=== PATIENT | male | born 1935 | race Caucasian/White ===

== ENCOUNTER 2023-04-20 14:39 | Inpatient (IN) | payer MEDICARE, OTHER, SELFPAY ==
[2023-04-13 11:04] LABS: Hematocrit 40.2 % (40-54); Hemoglobin 12.2 g/dL (13.0-16.5); Mean Corp Hgb Conc 30.3 g/dL (32-36); Mean Corpuscular Hgb 29.8 pg (27.0-32.0); Mean Platelet Vol. 9.5 fl (6.2-12.0); Platelet Count 309 K/mm3 (150-450); RBC Distribution Width CV 15.3 % (11.6-14.6); RBC Distribution Width SD 55.2 fl (35.1-43.9); White Blood Count 6.8 K/mm3 (4.4-11.0)
[2023-04-13 11:57] LABS: Anion Gap 4 (5-15); BUN 21 mg/dL (7-18); BUN/Creat Ratio 16.8 RATIO (10-20); Calcium,Total 8.7 mg/dL (8.5-10.1); Chloride 107 mmol/L (98-107); Creatinine, Serum 1.25 mg/dL (0.70-1.30); EST Glomerular Filtration Rate 58 mL/min (>60); Est Glom Filt Rate - Afr Amer 70 mL/min (>60); Glucose 115 mg/dL (74-106); Potassium 4.2 mmol/L (3.5-5.1); Sodium Level 142 mmol/L (136-145)
[2023-04-13 12:17] LABS: Hemoglobin A1c 6.1 % (3.8-5.6)
[2023-04-20] VITALS (20 sets, daily range): BP systolic 90–146; BP diastolic 53–102; PULSE 60–88; RESP 16–20; TEMP 36.2–37.1; O2SAT 79–98; BMI 30.4
--- NOTE | 2023-04-20 | PROST_PTH ---
PATIENT: MIGUEL SORIA LOC: MS3 U#:[id number] AGE/SX: 87/M ROOM: GA321 RE04/21/[address]: Dr. Virgil Chow MD : [id number] BED: 1 DIS: 04/25/2023 SPEC #: [id number] RECD: 04/20/23 18:25 STATUS: DAVID MUIR #: [id number] ERICA: 04/20/23 00:[address]: Virgil Chow DEPT: SURGICAL PATHOLOGY RECD BY: Eliud Ellis ENTERED: 04/21/23 08:57 SP TYPE: PROSTATE OTHR DR: Dr. Kirill Juarez MD Tissues: Prostate, NOS Procedures: Surgery Specimen Level V HEADER OPERATION: Laparoscopic robotic simple prostatectomy PRE-OP DIAGNOSIS: Urine retention, Benign prostatic hyperplasia with lower urinary tract symptoms TISSUE SUBMITTED: Prostate tissue MICROSCOPIC DIAGNOSIS Prostate, simple prostatectomy: Benign nodular hyperplasia, glandular and stromal types. Mild chronic inflammation. AM:andre 04/22/2023 MICROSCOPIC DESCRIPTION Slides are reviewed. GROSS DESCRIPTION Received in fixative is one container labeled with the patient's name and designated prostate tissue. The specimen consists of a simple prostatectomy specimen consisting of two large pieces, two intermediate sized pieces and one smaller piece. The specimen weighs in aggregate 257 gm and measures in aggregate 12.0 x 13.0 x 5.0 cm. Sections reveal multinodular cut surfaces with focal cystic area. No well-defined mass lesion is identified. Actuarial Clerk sections are submitted in ten cassettes as follows: 1 & 2 - smaller pieces of tissue, 3-6 - one large piece of tissue, 7-10 - second largest piece of tissue. / SJ:andre 04/21/2023 TC:3 CPT: 28967
[2023-04-20] MEDS: Lactated Ringers 1,000 ML 15 ML IV ×2 (10:29→16:18)
[2023-04-20 10:51] LABS: Bedside Glucose 106 mg/dL (74-106)
[2023-04-20] MEDS: Cefazolin 2 GM in 0.9% Normal Saline (100mL Bag) 100 ML IV (11:59)
[2023-04-20] MEDS: Bupivacaine Mpf 0.5% 30 ML VIAL (14:20)
--- NOTE | 2023-04-20 14:40 | PCM.HP.STD ---
HPI - General General Date of Service: 04/20/23 Chief Complaint: Retention of urine with a very large prostate HPI Narrative MIGUEL SORIA, is a 87 M who presents with retention of urine the prostate weighs 250 g cerumen to proceed with a simple robotic prostatectomy [facility] Medical History (Updated 04/07/23 @ 14:24 by Conchis Jeffrey) Abrasion Arthritis Cardiology follow-up encounter CKD (chronic kidney disease) Complete heart block Coronary artery disease Dilated cardiomyopathy Dyslipidemia Elevated PSA Enlarged prostate High cholesterol Hyperlipidemia Hypertension Ischemic heart disease Mitral valve regurgitation Non-smoker Osteoarthritis Paroxysmal atrial fibrillation Premature beats Prostate disease Shortness of breath on exertion Somnolence Systolic heart failure Urinary retention Wears glasses Home Medications aspirin 81 mg capsule 81 mg PO BID 04/07/23 [History Last Taken 04/14/23] carvedilol 12.5 mg tablet 12.5 mg PO BID 04/07/23 [History Last Taken 04/20/23 06:30] clopidogrel 75 mg tablet 75 mg PO DAILY 04/07/23 [History Last Taken 04/14/23] empagliflozin 10 mg tablet (Jardiance) 10 mg PO DAILY 04/07/23 [History Last Taken Unknown] furosemide 40 mg tablet 20 mg PO DAILY 04/07/23 [History Last Taken Unknown] pravastatin 40 mg tablet 40 mg PO QHS 04/07/23 [History Last Taken Unknown] sacubitril 97 mg-valsartan 103 mg tablet (Entresto) 1 tab PO BID 04/07/23 [History Last Taken Unknown] sitagliptin phosphate 50 mg-metformin 1,000 mg tablet (Janumet) 1 tab PO BID 04/07/23 [History Last Taken Unknown] ciprofloxacin HCl 500 mg tablet (Cipro) 500 mg PO BID #20 tabs 04/20/23 [Rx Last Taken Unknown] ibuprofen 600 mg tablet 600 mg PO Q6H PRN fever or pain #20 tabs 04/20/23 [Rx Last Taken Unknown] Allergy/AdvReac Type Severity Reaction Status Date / Time No Known Allergies Allergy Verified 04/07/23 13:26 Surgical History (Updated 04/07/23 @ 14:24 by Conchis Jeffrey) History of angioplasty (~04/2017) History of cardiac catheterization 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) History of cystoscopy (03/01/23) History of implantable cardiac defibrillator (ICD) (08/17/17) History of knee surgery History of local excision of skin lesion History of prostate biopsy (03/01/23) Social History Smoking Status: Never smoker Vital Signs Vital Signs Vital Signs: 04/20/23 10:01 04/20/23 10:01 Temperature 98.7 F Temperature Source Temporal Pulse Rate 67 Respiratory Rate 16 Respiratory Pattern Normal Blood Pressure 129/64 H Blood Pressure Mean 85 Blood Pressure Source Monitor Blood Pressure Position Semi-Fowlers Blood Pressure Location Left Arm Pulse Ox 98 Oxygen Delivery Method Room Air Weight Weight: 99 kg Body Mass Index (BMI) 30.4 Results Lab / Micro Data 04/13/23 10:33 04/13/23 10:33 Labs: Laboratory Results - last 24 hr 04/20/23 10:12: POC Glucose 106
--- NOTE | 2023-04-20 14:41 | OP.PCM_ITS ---
Report of Operation Date of Procedure: 04/20/23 Pre-Operative Diagnosis: BPH with obstruction and retention of urine Post-Operative Diagnosis: Same Surgery/Procedure Performed:: Laparoscopic robotic assisted simple prostatectomy Description of Surgical Findings:: Patient presents for a simple robotic prostatectomy. He understands that organ to do enucleation of the obstructing adenoma and then after his surgery he will need a catheter to allow this to heal. He understands is no guarantees that after the surgery he will be able to urinate spontaneously and may need to learn how to do self intermittent catheterization. We also talked about the risk of surgery which involves risk of bleeding and infection scar tissue formation bladder neck contracture. Patient was taken back to the operating room at this induction of anesthesia he underwent and intubation and was placed supine on the table. The abdomen was shaved prepped and draped in usual sterile fashion. A Mora catheter was placed into the penis. I then infiltrated the skin above the umbilicus with lidocaine and made a small 5 mm incision in the skin. I then advanced a Veress needle into the peritoneal cavity and inflated the peritoneal cavity with CO2 gas. Once the pressure was at 15 mm and a nice distention of the abdomen then the camera trocar was put into the abdomen. We then looked in with the 0 degree lens and we placed a right arm trocar and left arm trocar and then an air seal suction port high up in the abdomen to allow the respiratory equipment assistant to use this for suction. The robot was then docked and then we proceeded with the dissection. The colon was mobilized from the flexure of the colon on the patient's left side once this was freed up then the bladder was distended with 300 cc of sterile normal saline. I then made an incision in the bladder in the midline once we got inside the bladder that drained out all the saline we then used 2 Armando needles to retract the bladder laterally. Once the bladder was retracted in a clamshell fashion laterally then we got inside the bladder inspected the bladder deflated the balloon left the catheter in place. We then started with scoring the mucosa circumferentially all the way around very large protruding adenomatous prostate. I then dissected between the adenoma and the bladder inferiorly working my way in the avascular enucleation plane between the adenoma and the prostate capsule, pseudocapsule all the way inferiorly I then started working my way laterally up on the right side of the prostate until I got to the anterior part freeing up the adenomatous tissue from the prostate and the anteri or tissue and cutting through the bladder muscle and mucosa. We then worked our way laterally on the left side of the adenomatous tissue freeing up the adenoma from the prostate and the bladder muscle and mucosa I then came on top of the adenoma and was able to retract the adenoma out and then split the adenoma in half and identified the catheter and then identified the urethral strip the urethral strip was then carefully transected and then the right adenomatous tissue was removed and then the left adenomatous tissue was removed all intact and all this was placed in Endo Catch bag. Then we cauterized the prostate fossa extensively to control hemostasis Va was placed in the prostatic fossa. I then used a 3 oh STRATAFIX stitch to bring down the mucosa and advance it down towards the urethra circumferentially to advance the mucosa down to the urethral stump. We then placed a Mora catheter, 20 Spanish into the bladder with no continuous irrigation. Irrigate out the bladder irrigate all the clots out we then closed the bladder with 2 layers using 2 oh V-Loc stitch and then a 4-0 Vicryl stitch. Both the Armando needles were removed that were retracting the bladder. We then undocked the robot we extracted the prostate adenoma through the umbilicus port we closed the air seal port with 1012 stitch and then we closed all the other ports with subcuticular stitches once the prostate was extracted to the camera port and we reapproximated the fascia and the camera port with a 0 Vicryl [id number] fashion stitch. Minimal blood loss during the case catheter was irrigated and draining well patient anesthetic was reversed and he was taken back to the PACU in good condition. Surgeon: Virgil Chow Type of Anesthesia: General Drains: 20 FR CHINTAN Estimated Blood Loss (mL): 500 Admit VTE Documentation VTE Present on Admission: No VTE Mechan Device Prophylaxis: SCD's VTE Pharm Prophylaxis ordered?: No
--- NOTE | 2023-04-20 14:41 | DCINST_ITS ---
Discharge Instructions Diet Discharge Diet: No restrictions Activity Discharge Activity: Return to Normal Activity Dressing / Incision Cleanse incision/area with: Soap & Water Catheter: Mora to leg bag and Mora to large bag Drain: [place] Follow Up Care Please Follow Up With: Virgil Chow MD When: Call for an appointment in 2 weeks remove catheter Test Results: Test results from this visit will be discussed in further detail at your follow- up appointment, if applicable. Discharge Plan Admission Primary Reason for Your Visit: Simple prostatectomy Attending Provider: Virgil Chow Primary Care Provider: BRYN REED Consulting Providers: Kirill Juarez Discharge Orders/Prescriptions Prescriptions: New ciprofloxacin HCl [Cipro] 500 mg tablet 500 mg PO BID Qty: 20 0RF ibuprofen 600 mg tablet 600 mg PO Q6H PRN (Reason: fever or pain) Qty: 20 0RF Continued Jardiance 10 mg tablet 10 mg PO DAILY Patient Comments: TAKE 1 TABLET BY MOUTH IN THE MORNING carvedilol 12.5 mg tablet 12.5 mg PO BID Patient Comments: TAKE 1 TABLET BY MOUTH TWICE DAILY furosemide 40 mg tablet 20 mg PO DAILY Janumet 50-1,000 mg tablet 1 tab PO BID pravastatin 40 mg tablet 40 mg PO QHS Entresto 97-103 mg tablet 1 tab PO BID Held aspirin 81 mg capsule 81 mg PO BID Hold Instructions: Resume on 05/04/23. clopidogrel 75 mg tablet 75 mg PO DAILY Hold Instructions: Resume on 05/04/23. Discontinued tamsulosin 0.4 mg capsule 0.4 mg PO QHS Disposition Disposition (needs filled in before D/C Order can be placed): Home, Self Care
[2023-04-20 15:40] LABS: Bedside Glucose 152 mg/dL (74-106)
[2023-04-20] MEDS: 0.9% Normal Saline (1000mL) 1,000 ML 150 ML IV (18:53)
[2023-04-20] MEDS: Ciprofloxacin 400 MG/200 ML BAG 200 MG IV (20:42)
[2023-04-20] MEDS: Pravastatin 40 MG Tablet PO (20:51)
[2023-04-20] MEDS: Docusate Sodium 100 MG Capsule 200 MG PO (20:51)
[2023-04-20] MEDS: SACUBITRIL/VALSARTAN 97-103 MG TABLET 1 EACH PO (20:51)
[2023-04-20] MEDS: Carvedilol 12.5 MG Tablet PO (20:51)
[2023-04-21] VITALS (8 sets, daily range): BP systolic 99–116; BP diastolic 55–83; PULSE 62–72; RESP 16–18; TEMP 36.3–36.6; O2SAT 86–96
[2023-04-21] MEDS: 0.9% Normal Saline (1000mL) 1,000 ML 150 ML IV ×3 (02:34→17:35)
--- NOTE | 2023-04-21 07:37 | PCM.PN.GU ---
Subjective Subjective 87-year-old male status post simple prostatectomy for a very large prostate 250 g prostate for obstruction and BPH and retention of urine. Urine is still slightly bloody but draining okay. He is fairly confused only oriented to self needs full help to get out of bed on the right for physical therapy for evaluation I think you probably benefit to transfer to a short-term rehab facility prior to going home will have PT evaluate him for that if he qualifies and hopefully we can get him discharged to short-term facility by tomorrow.. Objective Data Objective Data Vital Signs: Vital Signs Temp Pulse Resp BP Pulse Ox O2 Del Method O2 Flow Rate 97.5 F L 72 18 114/60 96 Nasal Cannula 2 04/21/23 02:36 04/21/23 02:36 04/21/23 02:36 04/21/23 02:36 04/21/23 02:36 04/21/23 02:36 04/21/23 02:36 Oxygen Flow Rate (L/min) 2 Oxygen Delivery Method Nasal Cannula Weight: 99 kg Body Mass Index (BMI) 30.4 Intake & Output: Intake and Output for Last 24 Hours 04/19/23 04/20/23 04/21/23 23:59 23:59 23:59 Intake Total 2402.5 / 2402.5 1000 / 1000 Output Total 750 / 750 450 / 450 Balance 1652.5 / 1652.5 550 / 550 Lab / Micro Data 04/13/23 10:33 04/13/23 10:33 Labs: Laboratory Results - last 24 hr 04/20/23 10:12: POC Glucose 106 04/20/23 15:17: POC Glucose 152 H
[2023-04-21 07:44] LABS: Hematocrit 37.7 % (40-54); Hemoglobin 11.7 g/dL (13.0-16.5); Mean Corpuscular Hgb 29.9 pg (27.0-32.0); Mean Corpuscular Volume 96.4 fL (80-94); Mean Platelet Vol. 9.7 fl (6.2-12.0); Platelet Count 269 K/mm3 (150-450); RBC Distribution Width CV 14.9 % (11.6-14.6); RBC Distribution Width SD 52.9 fl (35.1-43.9); Red Blood Count 3.91 M/mm3 (4.6-6.2); White Blood Count 8.7 K/mm3 (4.4-11.0)
[2023-04-21] MEDS: Furosemide 20 MG Tablet PO (08:09)
[2023-04-21] MEDS: Ciprofloxacin 400 MG/200 ML BAG 200 MG IV (08:09)
[2023-04-21] MEDS: Empagliflozin 10 MG Tablet PO (08:10)
[2023-04-21] MEDS: metFORMIN HCl 500 MG Tablet 1000 MG PO (08:10)
[2023-04-21] MEDS: LINAGLIPTIN 5 MG TABLET PO (08:10)
[2023-04-21] MEDS: Docusate Sodium 100 MG Capsule 200 MG PO ×2 (08:10→22:34)
[2023-04-21] MEDS: Carvedilol 12.5 MG Tablet PO (08:10)
[2023-04-21] MEDS: SACUBITRIL/VALSARTAN 97-103 MG TABLET 1 EACH PO (08:10)
[2023-04-21 08:13] LABS: Anion Gap 10 (5-15); BUN 27 mg/dL (7-18); Chloride 108 mmol/L (98-107); Creatinine, Serum 1.35 mg/dL (0.70-1.30); EST Glomerular Filtration Rate 53 mL/min (>60); Est Glom Filt Rate - Afr Amer 64 mL/min (>60); Estimated Creatinine Clearance 41.06 ml/min; Glucose 152 mg/dL (74-106); Potassium 4.5 mmol/L (3.5-5.1); Sodium Level 140 mmol/L (136-145)
[2023-04-21 08:36] LABS: Bedside Glucose 147 mg/dL (74-106)
--- NOTE | 2023-04-21 15:51 | CASEMGMT ---
Met with patients son and dil to complete JIMENEZ form. JIMENEZ form explained to both who voiced understanding and signed form. Original form placed in pt?s chart and copy provided to?family. Dorothy Stockton, Discharge Planning Asst
--- NOTE | 2023-04-21 16:10 | CASEMGMT ---
Social Work SW met with pt to discuss advance directives.? Pt's son confirms pt has completed a living will and health care POA naming son Nghia Lamb. Pt notified that documents are not on file at [facility] and SW requested they be brought in for scanning into the EMR.? ELLIOT Courtney
--- NOTE | 2023-04-21 16:12 | CASEMGMT ---
Social Work SW met with pt, pt's son and daughter in law Fuad Lamb. Pt is currently confused and not able to answer all questions reliably. Pts son Robin answering questions. Per son Robin, pt is normally alert and oriented x3 but is starting to get mixed up in the evenings. Pt has not been diagnoses with dementia. Family states pt is often confused after surgery and they feel he will clear up by tomorrow as this is his normal. PCP: Dr. Brandi Hagen Specialists: Geraldo, urology Insurance: [employer], [place] [employer] Living Will/HPOA:?son Nghia Lamb is Healthcare POA and pt has a living will. Family aware documents are not on file and will bring them in for medical record. LNOK: Robin and Lakshmi Lamb, Nghia and Elise Adonis, Nella Isbell, all children who live locally. Living Arrangements: Pt had been living alone and independently up until January when urinary problems started. Since that time, pt's family has been providing 24 hour care to pt. Family has been in touch with a private duty agency recently and additional assistance is being set up. ? HHC/SNF: Pt was recently at [facility]. Pt is current with [facility] care PT/OT/SN/METAL OFF BEARER. RNCM updated. PLAN: Pt's son Robin states that the current plan is for pt to return home with resumption of home health care and family support. SNF/RU options discussed. Robin would like to speak with his brother ran and will follow up with SW tomorrow about final dc plan. ELLIOT Courtney
[2023-04-21 17:04] LABS: Bedside Glucose 152 mg/dL (74-106)
--- NOTE | 2023-04-21 18:11 | CASEMGMT ---
JIA ESCOBAR NOTE: Received [employer] M[employer] insurance card from pt's DIL and this was placed sent to registration to be placed scanned into pt's chart. DIL states they are pretty sure the RR MCR is pt's primary insurance. Both insurances, MCR and UHC have been verified as active by Evy in registration. [facility] order placed. Message sent to Dorothy, cyber ops planner, to have [facility] referral sent to [facility] via Careport. Anne Marie ALVARES RN CM
[2023-04-21] MEDS: Pravastatin 40 MG Tablet PO (22:34)
[2023-04-22] VITALS (12 sets, daily range): BP systolic 99–113; BP diastolic 48–77; PULSE 66–106; RESP 12–28; TEMP 36.2–36.9; O2SAT 82–100; BMI 33.2
[2023-04-22] MEDS: 0.9% Normal Saline (1000mL) 1,000 ML 150 ML IV ×3 (00:09→13:39)
[2023-04-22] MEDS: Docusate Sodium 100 MG Capsule 200 MG PO ×2 (08:08→21:02)
[2023-04-22] MEDS: SACUBITRIL/VALSARTAN 97-103 MG TABLET 1 EACH PO (08:09)
[2023-04-22] MEDS: Carvedilol 12.5 MG Tablet PO (08:09)
[2023-04-22] MEDS: Furosemide 20 MG Tablet PO (08:09)
[2023-04-22 08:29] LABS: Bedside Glucose 104 mg/dL (74-106)
--- NOTE | 2023-04-22 09:34 | CASEMGMT ---
Addendum entered by Dorothy Stockton 04/22/23 10:30: Discharge Planning HH order sent to [facility] via [facility]Port. Dorothy Stockton, Discharge Planning Asst. Addendum entered by Dorothy Stockton 04/22/23 10:24: [facility]charge [facility]/PRINCIPAL DEVELOPER. JIA CM updated. Dorothy Stockton Discharge Planning Asst. Original Note: Discharge Planning Resumption sent to [facility] to verify if patient is active with agency. Awaiting response. Dorothy Stockton, Discharge Planning Asst.
--- NOTE | 2023-04-22 12:24 | CASEMGMT ---
Social Work SW spoke w/son Robin and daughter Nella in the room. Nghia is POA but they are all in agreement for pt to go home with family and continue w/home health. [facility] They asked about pt going to a long term from home if needed. SW explained if they did do this, pt may have to pay for the long term stay. SW explained the Medicare 3 midnight rule to the family. They state understanding. Plan for now is for pt to go home w/family support and continuation of [facility]. ROSAMARIA Grijalva
--- NOTE | 2023-04-22 14:55 | CASEMGMT ---
Addendum entered by Brielle Franco 04/22/23 16:41: Updated [facility] that pt family is wanting SNF at this time. Addendum entered by Brielle Franco 04/22/23 16:34: Correction on previous note, not dil. It is pt dtr Izabela present in room. JIA ESCOBAR back into pt room, spoke with Robin Agrawal and Izabela. All deny speaking with SW this morning. JIA ESCOBAR left room to check notes and returned to room and Robin and Izabela state they did speak with SW. They state pt mentation is not at a point where pt can return home. They would like SNF and state pt is not safe to return home. They are willing to private pay if need be. Discussed 3 [place] rule. They will review SNF list for choices. JIA ESCOBAR updated . Addendum entered by Brielle Franco 04/22/23 15:56: Pt nurse made JIA ESCOBAR aware that pt family is stating pt cannot go home. JIA ESCOBAR into pt room, pt oriented to self and aware of president. Pt dil states that pt cannot go home like this. Discussed that the SW spoke with family this morning and plan was for [facility], she states that cannot happen and that the sons will be in within the half hour. Original Note: Sent dc instructions to [facility] via [employer] at this time.
--- NOTE | 2023-04-22 17:19 | CASEMGMT ---
Social Work SW met with pt's sons Robin and Nghia who state that due to pts poor cognition since surgery, family does not feel safe taking pt home at this time and are requesting SNF placement. A list of SNF providers including quality and resource use data and consistent with the patient?s preferred geographic region, medical needs, and insurance network were provided from the CarePort Guide. Family preferences are 1. [facility] 2. [facility]. SW spoke with pt's nurse who updated Dr. Chow and is understanding that pt will need short term rehab and agreeable for pt to stay at hospital until arrangements can be made for SNF placement. Referrals sent to [facility] and [facility] at this time. SW will await determination of acceptance by facilities. Pt's sons updated. Plan: SNF, pending acceptance ELLIOT Courtney
--- NOTE | 2023-04-22 18:30 | PCM.PN.GU ---
Subjective Subjective Status post simple prostatectomy patient was going to go home today but the family had agreed to get him transferred to short-term rehab facility once we get the bed ready we can transfer the patient Objective Data Objective Data Vital Signs: Vital Signs Temp Pulse Resp BP Pulse Ox O2 Del Method O2 Flow Rate 97.8 F 73 18 104/48 L 94 Nasal Cannula 2 04/22/23 14:40 04/22/23 14:40 04/22/23 14:40 04/22/23 14:40 04/22/23 17:50 04/22/23 17:50 04/22/23 17:50 Oxygen Flow Rate (L/min) 2 Oxygen Delivery Method Nasal Cannula Weight: 99 kg Body Mass Index (BMI) 30.4 Intake & Output: Intake and Output for Last 24 Hours 04/20/23 04/21/23 04/22/23 23:59 23:59 23:59 Intake Total 2402.5 / 2402.5 3200 / 3200 2975 / 2975 Output Total 750 / 750 850 / 1350 1900 / 1900 Balance 1652.5 / 1652.5 2350 / 1850 1075 / 1075 Lab / Micro Data 04/21/23 07:28 04/21/23 07:28 Labs: Laboratory Results - last 24 hr 04/22/23 08:06: POC Glucose 104
--- NOTE | 2023-04-22 18:31 | PCM.TXEXTCAR ---
Diet Diet Order/Speech Therapy: 04/20/23 14:38 Diet: Regular - General Routine Orders/Code Status Suppository Frequency: Daily PRN Wound(s) ABDOMEN: Wound Type: Surgical Incision Therapies Weight Bearing: Full weight bearing Physical Therapy: Eval and Treat Occupational Therapy: Eval and Treat Speech Therapy: Eval and Treat Allergies/Procedures Done in Hospital Allergies No Known Allergies Allergy (Verified 04/07/23 13:26) Procedures: - (Simple robotic prostatectomy) Type of Care/Length of Stay Estimated LOS: Convalescent Care Less Than 30 days Type of Care Needed: Skilled Rehab Potential: Good Prognosis: Good Additional Orders/Day of Discharge Day of Discharge: 04/23/23 Follow Up Care Please Follow Up With: Virgil Chow MD Discharge Plan Admission Admit Date/Time: 04/21/23 18:09 Primary Reason for Your Visit: Simple prostatectomy Attending Provider: Virgil Chow Primary Care Provider: BRYN REED Consulting Providers: Kirill Juarez Discharge Orders/Prescriptions Prescriptions: New ciprofloxacin HCl [Cipro] 500 mg tablet 500 mg PO BID Qty: 20 0RF ibuprofen 600 mg tablet 600 mg PO Q6H PRN (Reason: fever or pain) Qty: 20 0RF Continued Jardiance 10 mg tablet 10 mg PO DAILY Patient Comments: TAKE 1 TABLET BY MOUTH IN THE MORNING carvedilol 12.5 mg tablet 12.5 mg PO BID Patient Comments: TAKE 1 TABLET BY MOUTH TWICE DAILY furosemide 40 mg tablet 20 mg PO DAILY Janumet 50-1,000 mg tablet 1 tab PO BID pravastatin 40 mg tablet 40 mg PO QHS Entresto 97-103 mg tablet 1 tab PO BID Held aspirin 81 mg capsule 81 mg PO BID Hold Instructions: Resume on 05/04/23. clopidogrel 75 mg tablet 75 mg PO DAILY Hold Instructions: Resume on 05/04/23. Discontinued tamsulosin 0.4 mg capsule 0.4 mg PO QHS Referrals / Follow Up: Virgil Chow MD [Med Staff - Active Staff] -
--- NOTE | 2023-04-22 18:45 | PCM.PN.GU ---
Subjective Subjective 87-year-old male status post simple prostatectomyWe are hoping to get him discharged however he is still very confused at night he is sundowning, I will probably do a workup to see if there is a cause of the confusion we will send her down for a chest x-ray to rule out a pneumonia I will consult the medical service to see if they have any other ideas as to what could causing confusion besides postop care and sundowning hold discharge for now until he gets better we will check blood work CBC and BMP in the morning Objective Data Objective Data Vital Signs: Vital Signs Temp Pulse Resp BP Pulse Ox O2 Del Method O2 Flow Rate 97.8 F 73 18 104/48 L 94 Nasal Cannula 2 04/22/23 14:40 04/22/23 14:40 04/22/23 14:40 04/22/23 14:40 04/22/23 17:50 04/22/23 17:50 04/22/23 17:50 Oxygen Flow Rate (L/min) 2 Oxygen Delivery Method Nasal Cannula Weight: 99 kg Body Mass Index (BMI) 30.4 Intake & Output: Intake and Output for Last 24 Hours 04/20/23 04/21/23 04/22/23 23:59 23:59 23:59 Intake Total 2402.5 / 2402.5 3200 / 3200 2975 / 2975 Output Total 750 / 750 850 / 1350 1900 / 1900 Balance 1652.5 / 1652.5 2350 / 1850 1075 / 1075 Lab / Micro Data 04/21/23 07:28 04/21/23 07:28 Labs: Laboratory Results - last 24 hr 04/22/23 08:06: POC Glucose 104
--- NOTE | 2023-04-22 19:10 | RAD_ITS ---
STUDY: X-RAY CHEST REASON FOR EXAM: Male, 87 years old. on oxygen sob TECHNIQUE: PA and lateral views of the chest. COMPARISON: None. FINDINGS: Left subclavian AICD. Status post median sternotomy. Poor inspiration with some bibasilar atelectasis. Small left pleural effusion. There is moderate cardiac enlargement. Normal mediastinum and kamari. There is prominence of the pulmonary hilar arteries and peripheral pulmonary arteries, consistent with congestive heart failure (CHF). Normal visualized aortic arch and descending thoracic aorta. Normal visualized thoracic spine. Normal visualized ribs, clavicles, and shoulders. There is no demonstrated abnormality of the visualized soft tissue structures of the upper abdomen. RAD/Chest PA and Lateral IMPRESSION: Mild congestive heart failure with small left pleural effusion. Electronically Signed: River Pendleton MD at 20:22 EST ,
--- NOTE | 2023-04-22 19:42 | NURSING ---
xray called requested cxr be read stat as requested by Dr. Tejada.
--- NOTE | 2023-04-22 19:55 | PCM.PN.HOSP ---
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 Chow. Patient was initially to be discharged 04/22/23; however, overnight and continuing into today patient noted to be confused and family concerned for possible hallucinations which is not normal for the patient. Patient family also now requesting patient be placed to SNF at discharge. Patient does admit to dyspnea and appears to have mild increased work of breathing and accessory muscle usage. Discussed with respiratory therapy given also examination and patient will have ABG performed with plan diuresis, lactic acid, ammonia level to be obtained now. Patient denies fevers, chills, nausea, emesis, abdominal pain, chest pain. Objective Data Objective Data Vital Signs: Vital Signs Temp Pulse Resp BP Pulse Ox O2 Del Method O2 Flow Rate 97.8 F 73 18 104/48 L 94 Nasal Cannula 2 04/22/23 14:40 04/22/23 14:40 04/22/23 14:40 04/22/23 14:40 04/22/23 17:50 04/22/23 17:50 04/22/23 17:50 Oxygen Flow Rate (L/min) 2 Oxygen Delivery Method Nasal Cannula Weight: 218 lb 4.122 oz Body Mass Index (BMI) 30.4 Intake & Output: Intake and Output for Last 24 Hours 04/20/23 04/21/23 04/22/23 23:59 23:59 23:59 Intake Total 2402.5 / 2402.5 3200 / 3200 3767.5 / 3767.5 Output Total 750 / 750 850 / 1350 1900 / 1900 Balance 1652.5 / 1652.5 2350 / 1850 1867.5 / 1867.5 Lab / Micro Data 04/21/23 07:28 04/21/23 07:28 Labs: Laboratory Results - last 24 hr 04/22/23 08:06: POC Glucose 104 Physical Exam Narrative Physical Examination: General: Awake, alert, oriented to self and place and some recent events but definitely is confused above his baseline, remains cooperative but still trying intermittently to get out of bed, no acute distress but does appear mildly dyspneic with increased respiratory rate and some accessory muscle usage. Skin: Normal color, normal turgor, no icterus, no cyanosis except for occasional staged ecchymoses as well as recent surgery with lap sites to the abdomen with robotic assisted prostatectomy with no drainage noted. HEENT: AT/NC, EOMI, PERRLA, mildly dry MM, no carotid bruits, + JVD noted. Lungs: Diminished, greater bases, occasional expiratory wheeze noted, distant rales, no rhonchi with mildly increased respiratory rate and accessory muscle usage but no severe distress noted. Heart: Regular rate; no gallop, rub audible. Abdomen: Soft, obese, NTTP with as noted status post laparoscopic assisted prostatectomy with dressings in place with no drainage, mildly tympanitic but no severe distention, mildly hyperactive BS. Extremities: No cyanosis, no marked clubbing, peripheral ankle edema. Neurological: Patient awake, alert, oriented as noted, cognitive function not baseline intact; pupils equally reactive to light and accommodation, cranial nerves grossly normal, moving all 4 extremities, no focal deficits, strength moderately to severely global decrease secondary to recent intervention and confusion as well as respiratory acute presentation currently as noted. Psychiatric: Affect appears mildly agitated, attempting to get out of bed but can be calmed and redirected, no acute evidence of depressive or anxiety feelings. 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 Chow. Patient was initially to be discharged 04/22/23; however, overnight and continuing into today patient noted to be confused and family concerned for possible hallucinations which is not normal for the patient. #1. Increased confusion/Acute Encephalopathy, suspect multifactorial with noted with acute hypoxia requiring supplemental oxygen suspected primarily secondary to #2 as noted (82% on RA->94% on 2L NC): Chest x-ray recently obtained and there is a small amount of free air above the dome of the liver but did just have robotic assisted surgery, does appear overloaded, wheezing on exam w/ mild rales, will administer duoneb x 1, obtain ABG, obtain NH, obtain LA, obtain procalcitonin, pulse dose with IV lasix now, will repeat CBC and CMP in a.m., maintain on fall precautions, encourage aggressive incentive spirometry, hold narcotic therapies, ensure Mora catheter is continuing to function as patient does have mild hematuria but this is expected given recent procedure but need to assure no retention. #2. Acute Exacerbation HFrEF/Ischemic Cardiomyopathy: Chest x-ray with overloaded appearance and repeat weight now with 218->238 lbs since 04/20/23, temporally holding aspirin and Plavix given recent operative intervention with resumption once cleared per urology, patient continued on Coreg, Entresto, Lasix with plan pulse dose IV Lasix, monitor daily weights. #3. 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 Chow, currently Mora catheter in place, some urine noted per staff but again this would be expected given recent intervention, not currently on any antibiotic therapy, to be cautious we will request urinalysis in case of possibly infectious etiology, procalcitonin requested as well as LA. #4. Diabetes mellitus type II: Hold oral home regimen, ADA diet, add accu checks w/ ISS. #5. CAD: Status post CABG and PCI, patient currently with associated mild hematuria with recent procedure as expected, antiplatelet temporarily held, restart once cleared per urology, continued on Coreg, Entresto, statin therapy. #6. Hypertension: Continue home regimen including Coreg, Entresto, Lasix with potential for pulse dose IV Lasix given noted above but awaiting read given concern for possible free air which could be contributing also, PRN hydralazine. #7. Hyperlipidemia: Will continue patient on statin therapy. #8. Chronic Kidney Disease Stage III, unclear subtype: 04/21/2023 BUN/creatinine 27/1.35 baseline renal function appears similar 1.2-1.3, GFR noted to be 53, repeat CMP in AM. #9. Chronic anemia, appears macrocytic: 04/21/2023 labs with hemoglobin 11.7, MCV 96.4, prior baseline noted to be similar 12.2 on 04/13/2023, continue to trend. #10. History complete heart block: Status post pacemaker status, stable. #11. DVT prophylaxis: Encourage SCD usage. Charges/Coding Visit Charges Inpatient E&M: 90401 Subs Hosp L3
[2023-04-22 20:25] LABS: Absolute Lymphocyte Count 1.16 X10^3/uL (0.83-4.51); Absolute Neutrophil Count 5.6 X10^3/uL (2.0-7.7); Basophil# 0.02 X10^3/uL; Basophil% 0.3 % (0-1); Eosinophil# 0.03 X10^3/uL; Eosinophils% 0.4 % (0-5); Hematocrit 34.5 % (40-54); Hemoglobin 10.5 g/dL (13.0-16.5); Lymphocyte # 1.16 X10^3/ul (0.83-4.51); Lymphocyte % 14.7 % (19-41); Mean Corp Hgb Conc 30.4 g/dL (32-36); Mean Corpuscular Hgb 29.8 pg (27.0-32.0); Mean Platelet Vol. 9.5 fl (6.2-12.0); Monocyte# 0.98 X10^3/uL; Monocyte% 12.5 % (0-10); NRBC Flagged by Analyzer 0 % (0-5); Neutrophil # 5.64 X10^3/uL (2.7-7.7); Neutrophil % 71.6 % (47-70); Platelet Count 230 K/mm3 (150-450); RBC Distribution Width CV 15.8 % (11.6-14.6); RBC Distribution Width SD 56.3 fl (35.1-43.9); Red Blood Count 3.52 M/mm3 (4.6-6.2); White Blood Count 7.9 K/mm3 (4.4-11.0)
[2023-04-22 20:38] LABS: Anion Gap 4 (5-15); BUN 28 mg/dL (7-18); BUN/Creat Ratio 23.3 RATIO (10-20); Chloride 111 mmol/L (98-107); EST Glomerular Filtration Rate 61 mL/min (>60); Est Glom Filt Rate - Afr Amer 74 mL/min (>60); Estimated Creatinine Clearance 46.19 ml/min; Glucose 123 mg/dL (74-106); Sodium Level 142 mmol/L (136-145)
[2023-04-22 20:41] LABS: Allen Test Positive; Base Excess -1 mmol/L (-2 to +2); Blood Gas Specimen Type ART; Mode Not entered; O2 Delivery Device Cannula; PO2 < 34 mmHG (75-100); SITE R Radial; SO2 56 % (95-99); Total Carbon Dioxide 27 mmol/L; pCO2 48.6 mmHg (35-45); pH 7.32 (7.35-7.45)
[2023-04-22 20:49] LABS: Procalcitonin 0.16 ng/mL (0.00-0.09)
[2023-04-22] MEDS: Furosemide 40 MG/4 ML Vial IV (21:02)
[2023-04-22] MEDS: Menthol/Lanolin/Calamine/Znox 113 GM Tube 1 APPLIC TOPICAL (21:02)
[2023-04-22] MEDS: Pravastatin 40 MG Tablet PO (21:03)
[2023-04-22] MEDS: Albuterol 2.5 MG/3 ML VIAL.NEB. INHALATION (21:07)
[2023-04-22 21:23] LABS: Mucous, Urine 0 SEEN /hpf (<or=2+); Squamous Epithelial Cells - UA 0 SEEN /hpf (0-5)
[2023-04-22 21:26] LABS: Color, Urine Yellow (Yellow); Glucose, Dipstick 1000 mg/dl (Normal); Ketone-Dipstick 5 mg/dl (Negative); Leukocyte Esterase-Dipstick 100 /ul (Negative); Nitrite-Dipstick Negative (Negative); Occult Blood-Urine 250 /ul (Negative); Protein-Dipstick 100 mg/dl (Negative); Specific Gravity, Urine 1.015 (1.002-1.030); Urine Bilirubin Dipstick Negative (Negative); Urine Clarity Sl. Cloudy (Clear); Urine Urobilinogen Normal (Normal)
[2023-04-22 21:43] LABS: Bacteria RARE /hpf (None Seen); Red Blood Cells-Urine > 100 SEEN /hpf (0-5); White Blood Cells 5-10 SEEN /hpf (0-5)
[2023-04-22 21:44] LABS: Amorphous Sediment 1+ URATE
--- NOTE | 2023-04-22 22:02 | CPS ---
Critical ABG values, due to venous sample obtained. Dr. Tejada aware
[2023-04-22 22:32] LABS: Bedside Glucose 120 mg/dL (74-106)
[2023-04-22] MEDS: Haloperidol Lactate 5 MG/ML Vial 1 MG IM (22:40)
[2023-04-23] VITALS (18 sets, daily range): BP systolic 87–133; BP diastolic 45–73; PULSE 60–108; RESP 12–25; TEMP 36.2–37.1; O2SAT 91–98; BMI 26.7
[2023-04-23 06:24] LABS: Absolute Lymphocyte Count 1.72 X10^3/uL (0.83-4.51); Absolute Neutrophil Count 4.7 X10^3/uL (2.0-7.7); Basophil# 0.02 X10^3/uL; Basophil% 0.3 % (0-1); Eosinophil# 0.04 X10^3/uL; Eosinophils% 0.5 % (0-5); Hematocrit 33.8 % (40-54); Hemoglobin 10.7 g/dL (13.0-16.5); Lymphocyte # 1.72 X10^3/ul (0.83-4.51); Lymphocyte % 23.1 % (19-41); Mean Corp Hgb Conc 31.7 g/dL (32-36); Mean Corpuscular Hgb 30.5 pg (27.0-32.0); Mean Corpuscular Volume 96.3 fL (80-94); Mean Platelet Vol. 9.9 fl (6.2-12.0); Monocyte# 0.98 X10^3/uL; Monocyte% 13.2 % (0-10); NRBC Flagged by Analyzer 0 % (0-5); Neutrophil # 4.66 X10^3/uL (2.7-7.7); Neutrophil % 62.8 % (47-70); Platelet Count 207 K/mm3 (150-450); RBC Distribution Width CV 15.7 % (11.6-14.6); RBC Distribution Width SD 55.8 fl (35.1-43.9); Red Blood Count 3.51 M/mm3 (4.6-6.2); White Blood Count 7.4 K/mm3 (4.4-11.0)
[2023-04-23 06:52] LABS: Bedside Glucose 129 mg/dL (74-106)
[2023-04-23 06:56] LABS: ALB/GLOB Ratio 0.8 RATIO (0.9-2.4); AST(SGOT) 13 U/L (15-37); Alanine Aminotransfer ALT/SGPT 7 U/L (16-61); Albumin, Serum 2.7 g/dL (3.2-5.0); Alkaline Phosphatase 56 U/L (45-117); Anion Gap 6 (5-15); BUN 25 mg/dL (7-18); BUN/Creat Ratio 22.5 RATIO (10-20); Calcium,Total 8.3 mg/dL (8.5-10.1); Chloride 108 mmol/L (98-107); Creatinine, Serum 1.11 mg/dL (0.70-1.30); EST Glomerular Filtration Rate 67 mL/min (>60); Est Glom Filt Rate - Afr Amer 81 mL/min (>60); Estimated Creatinine Clearance 49.94 ml/min; Globulin 3.6 g/dL (2.2-4.2); Glucose 96 mg/dL (74-106); Potassium 3.7 mmol/L (3.5-5.1); Protein, Total 6.3 g/dL (6.4-8.2); Sodium Level 141 mmol/L (136-145)
[2023-04-23] MEDS: Docusate Sodium 100 MG Capsule 200 MG PO ×2 (08:24→20:42)
[2023-04-23] MEDS: Carvedilol 12.5 MG Tablet PO ×2 (08:25→20:42)
[2023-04-23] MEDS: SACUBITRIL/VALSARTAN 97-103 MG TABLET 1 EACH PO ×2 (08:25→20:42)
[2023-04-23] MEDS: Furosemide 40 MG/4 ML Vial IV ×2 (08:29→16:25)
[2023-04-23] MEDS: Menthol/Lanolin/Calamine/Znox 113 GM Tube 1 APPLIC TOPICAL ×3 (08:34→20:43)
--- NOTE | 2023-04-23 08:44 | PN.URO_ITS ---
Subjective Subjective 87-year-old male with multiple medical problems underwent a simple robotic prostatectomy last night was more confused hypoxic found to have probably fluid overload congestive heart failure was given diuresis looks better this morning he is alert awake he also was on BiPAP last night. Appreciate input from medical service. Will resume his aspirin but will hold his Plavix. Will hold on discharge until he is medically stable. Objective Data Objective Data Vital Signs: Vital Signs Temp Pulse Resp BP Pulse Ox O2 Del Method O2 Flow Rate 97.2 F L 62 18 131/71 H 92 Nasal Cannula 2 04/23/23 03:18 04/23/23 03:18 04/23/23 03:18 04/23/23 03:18 04/23/23 07:14 04/23/23 07:14 04/23/23 07:14 FiO2 30 04/23/23 02:55 Oxygen Flow Rate (L/min) 2 Oxygen Delivery Method Nasal Cannula Weight: 86.9 kg Body Mass Index (BMI) 26.7 Intake & Output: Intake and Output for Last 24 Hours 04/21/23 04/22/23 04/23/23 23:59 23:59 23:59 Intake Total 3200 / 3200 3767.5 / 3767.5 300 / 300 Output Total 850 / 1350 1900 / 1900 3500 / 3500 Balance 2350 / 1850 1867.5 / 1867.5 -3200 / -3200 Lab / Micro Data 04/23/23 06:06 04/23/23 06:06 Labs: Laboratory Results - last 24 hr 04/22/23 20:10: WBC 7.9, RBC 3.52 L, Hgb 10.5 L, Hct 34.5 L, MCV 98.0 H, MCH 29.8, MCHC 30.4 L, RDW Std Deviation 56.3 H, RDW Coeff of Leonor 15.8 H, Plt Count 230, MPV 9.5, Immature Gran % (Auto) 0.500, Neut % (Auto) 71.6 H, Lymph % (Auto) 14.7 L, [place] % (Auto) 12.5 H, Eos % (Auto) 0.4, Baso % (Auto) 0.3, Absolute Neuts (auto) 5.6, Absolute Lymphs (auto) 1.16, Nucleated RBC % 0, Sodium 142, Potassium 4.0, Chloride 111 H, Carbon Dioxide 27.0, Anion Gap 4 L, BUN 28 H, Creatinine 1.20, Estim Creat Clear Calc 46.19, Est GFR (MDRD) Af Amer 74, Est GFR (MDRD) Non-Af 61, BUN/Creatinine Ratio 23.3 H, Glucose 123 H, Calcium 8.0 L, B-Natriuretic Peptide 689.0 H, Procalcitonin 0.16 H 04/22/23 20:17: Lactic Acid 1.0, Magnesium 2.0, Ammonia 20.0 04/22/23 21:01: POC Glucose 120 H 04/22/23 21:10: Urine Color Yellow, Urine Clarity Sl. Cloudy, Urine pH 5.0, Ur Specific [place] 1.015, Urine Protein 100 H, Urine Glucose (UA) 1000 H, Urine Ketones 5 H, Urine Occult Blood 250 H, Urine Nitrite Negative, Urine Bilirubin Negative, Urine Urobilinogen Normal, Ur Leukocyte Esterase 100 H, Urine RBC > 100 SEEN, Urine WBC 5-10 SEEN, Ur Squamous Epith Cells 0 SEEN, Amorphous Sediment 1+ URATE, Urine Bacteria RARE, Urine Mucus 0 SEEN 04/23/23 06:06: WBC 7.4, RBC 3.51 L, Hgb 10.7 L, Hct 33.8 L, MCV 96.3 H, MCH 30 .5, MCHC 31.7 L, RDW Std Deviation 55.8 H, RDW Coeff of Leonor 15.7 H, Plt Count 207, MPV 9.9, Immature Gran % (Auto) 0.100, Neut % (Auto) 62.8, Lymph % (Auto) 23.1, [place] % (Auto) 13.2 H, Eos % (Auto) 0.5, Baso % (Auto) 0.3, Absolute Neuts (auto) 4.7, Absolute Lymphs (auto) 1.72, Nucleated RBC % 0, Sodium 141, Potassium 3.7, Chloride 108 H, Carbon Dioxide 27.0, Anion Gap 6, BUN 25 H, Creatinine 1.11, Estim Creat Clear Calc 49.94, Est GFR (MDRD) Af Amer 81, Est GFR (MDRD) Non-Af 67, BUN/Creatinine Ratio 22.5 H, Glucose 96, Calcium 8.3 L, Total Bilirubin 0.70, AST 13 L, ALT 7 L, Alkaline Phosphatase 56, Total Protein 6.3 L, Albumin 2.7 L, Globulin 3.6, Albumin/Globulin Ratio 0.8 L 04/23/23 06:26: POC Glucose 129 H ABG Data ABG results: ABG 04/22/23 20:38 Specimen Type ART Sample Site R Radial pH 7.32 L Bicarbonate Actual 25.0 Total CO2 27 Base Excess -1 O2 Saturation 56 L O2 % 3.0 ABG pCO2 48.6 H ABG pO2 < 34 L* Thien Test Positive O2 Delivery Device Cannula Vent Mode Not entered Crit Call To/Read Back Yes Radiography Diagnostic Testing: Radiology Impression Chest X-Ray 04/22/23 19:10 IMPRESSION: Mild congestive heart failure with small left pleural effusion. Electronically Signed: River Pendleton MD at 20:22 EST ,
[2023-04-23] MEDS: Aspirin 81 MG TAB.CHEW PO ×2 (11:14→16:25)
[2023-04-23] MEDS: Insulin Lispro 100 UNIT/ML INSULN.PEN SC ×2 (11:17→16:20)
[2023-04-23 12:00] LABS: Bedside Glucose 168 mg/dL (74-106)
--- NOTE | 2023-04-23 13:11 | CASEMGMT ---
Social Work Responses from both nursing homes in [facility] requesting nursing notes/additional information regarding pt's mental status. SW sent nursing notes via [employer] with a note stating that as per RN, pt cooperative and following commands. SW will continue to follow. ROSAMARIA Grijalva
--- NOTE | 2023-04-23 14:34 | CPS ---
When RT came into the room with an I.S. & PEP therapy, pt said don't bring those in here, I won't work on them. RT sherry RO.
--- NOTE | 2023-04-23 14:56 | PCM.PN.HOSP ---
Reason for Visit Reason for Visit: Diagnoses Encephalopathy, unspecified (04/21/23) Encounter for other preprocedural examination (04/21/23) Subjective Subjective Patient seen at bedside this morning, son present. Patient appeared very fatigued this morning and only answers questions with short answers, but otherwise appeared comfortable and in no acute distress. He was requiring 2 L nasal cannula at that time, no increased work of breathing noted. Patient's son states that patient wore the BiPAP overnight and was given an antianxiety medication to tolerate this, and he appears more somnolent this morning than yesterday. However, son states that patient appeared to be improving yesterday in comparison to earlier in admission. No other acute concerns this morning. Objective Data Objective Data Vital Signs: Vital Signs Temp Pulse Resp BP Pulse Ox O2 Del Method O2 Flow Rate 97.7 F L 100 16 91/62 94 Room Air 2 04/23/23 14:43 04/23/23 14:43 04/23/23 14:43 04/23/23 14:43 04/23/23 14:43 04/23/23 14:43 04/23/23 13:21 FiO2 30 04/23/23 02:55 Oxygen Flow Rate (L/min) 2 Oxygen Delivery Method Room Air Weight: 86.9 kg Body Mass Index (BMI) 26.7 Intake & Output: Intake and Output for Last 24 Hours 04/21/23 04/22/23 04/23/23 23:59 23:59 23:59 Intake Total 3200 / 3200 3767.5 / 3767.5 500 / 500 Output Total 850 / 1350 1900 / 1900 4350 / 4350 Balance 2350 / 1850 1867.5 / 1867.5 -3850 / -3850 Lab / Micro Data 04/23/23 06:06 04/23/23 06:06 Labs: Laboratory Results - last 24 hr 04/22/23 20:10: WBC 7.9, RBC 3.52 L, Hgb 10.5 L, Hct 34.5 L, MCV 98.0 H, MCH 29.8, MCHC 30.4 L, RDW Std Deviation 56.3 H, RDW Coeff of Leonor 15.8 H, Plt Count 230, MPV 9.5, Immature Gran % (Auto) 0.500, Neut % (Auto) 71.6 H, Lymph % (Auto) 14.7 L, Barber % (Auto) 12.5 H, Eos % (Auto) 0.4, Baso % (Auto) 0.3, Absolute Neuts (auto) 5.6, Absolute Lymphs (auto) 1.16, Nucleated RBC % 0, Sodium 142, Potassium 4.0, Chloride 111 H, Carbon Dioxide 27.0, Anion Gap 4 L, BUN 28 H, Creatinine 1.20, Estim Creat Clear Calc 46.19, Est GFR (MDRD) Af Amer 74, Est GFR (MDRD) Non-Af 61, BUN/Creatinine Ratio 23.3 H, Glucose 123 H, Calcium 8.0 L, B-Natriuretic Peptide 689.0 H, Procalcitonin 0.16 H 04/22/23 20:17: Lactic Acid 1.0, Magnesium 2.0, Ammonia 20.0 04/22/23 21:01: POC Glucose 120 H 04/22/23 21:10: Urine Color Yellow, Urine Clarity Sl. Cloudy, Urine pH 5.0, Ur Specific [place] 1.015, Urine Protein 100 H, Urine Glucose (UA) 1000 H, Urine Ketones 5 H, Urine Occult Blood 250 H, Urine Nitrite Negative, Urine Bilirubin Negative, Urine Urobilinogen Normal, Ur Leukocyte Esterase 100 H, Urine RBC > 100 SEEN, Urine WBC 5-10 SEEN, Ur Squamous Epith Cells 0 SEEN, Amorphous Sediment 1+ URATE, Urine Bacteria RARE, Urine Mucus 0 SEEN 04/23/23 06:06: WBC 7.4, RBC 3.51 L, Hgb 10.7 L, Hct 33.8 L, MCV 96.3 H, MCH 30.5, MCHC 31.7 L, RDW Std Deviation 55.8 H, RDW Coeff of Leonor 15.7 H, Plt Count 207, MPV 9.9, Immature Gran % (Auto) 0.100, Neut % (Auto) 62.8, Lymph % (Auto) 23.1, Barber % (Auto) 13.2 H, Eos % (Auto) 0.5, Baso % (Auto) 0.3, Absolute Neuts (auto) 4.7, Absolute Lymphs (auto) 1.72, Nucleated RBC % 0, Sodium 141, Potassium 3.7, Chloride 108 H, Carbon Dioxide 27.0, Anion Gap 6, BUN 25 H, Creatinine 1.11, Estim Creat Clear Calc 49.94, Est GFR (MDRD) Af Amer 81, Est GFR (MDRD) Non-Af 67, BUN/Creatinine Ratio 22.5 H, Glucose 96, Calcium 8.3 L, Total Bilirubin 0.70, AST 13 L, ALT 7 L, Alkaline Phosphatase 56, Total Protein 6.3 L, Albumin 2.7 L, Globulin 3.6, Albumin/Globulin Ratio 0.8 L 04/23/23 06:26: POC Glucose 129 H 04/23/23 11:13: POC Glucose 168 H Micro: Microbiology 04/22/23 21:10 Urine Catheter - Mora Streptococcus pneumoniae Antigen (M - Final ABG Data ABG results: ABG 04/22/23 20:38 Specimen Type ART Sample Site R Radial pH 7.32 L Bicarbonate Actual 25.0 Total CO2 27 Base Excess -1 O2 Saturation 56 L O2 % 3.0 ABG pCO2 48.6 H ABG pO2 < 34 L* Thien Test Positive O2 Delivery Device Cannula Vent Mode Not entered Crit Call To/Read Back Yes Radiography Diagnostic Testing: Radiology Impression Chest X-Ray 04/22/23 19:10 IMPRESSION: Mild congestive heart failure with small left pleural effusion. Electronically Signed: River Pendleton MD at 20:22 EST , Physical Exam Const alert, no apparent distress and average body habitus Constitutional Narrative: Elderly male, fatigued appearing and somewhat somnolent, did provide short answers to questions, laying comfortably in bed, no acute distress. General Appearance: cooperative and comfortable HEENT normocephalic, head/scalp atraumatic, hearing grossly normal bilaterally, nasal mucous membranes and turbinates normal and moist oral mucous membranes Eyes PERRL, EOMs intact bilaterally and conjunctivae normal Neck full ROM, no lymphadenopathy and supple Lymph Lymphatic: no lymphadenopathy noted Chest inspection of chest normal Resp Resp Narrative: Mild crackles noted bilaterally. No wheezing noted. Otherwise good breath sounds bilaterally. Cardio regular rate, regular rhythm, no murmurs and peripheral pulses 2+ throughout GI normal to inspection, nondistended, normoactive bowel sounds, soft to palpation, non-tender and non-distended Back/Spine normal ROM Extremity normal to inspection and no pedal edema Skin no rashes or lesions noted Neuro moves all extremities and no focal motor deficits Assessment & Plan Assessment/Plan (1) Encephalopathy acute: (2) HFrEF (heart failure with reduced ejection fraction): PLAN: Plan Patient is an 87-year-old male who presented to [facility] on 04/20 for a planned laparoscopic robotic assisted simple prostatectomy. Hospital course complicated by confusion and possible hallucinations on evening of 04/22, medicine consulted for medical management. 1. Acute encephalopathy, improving Suspect patient's confusion is primarily due to hospital delirium and owning. ABG on 04/22 fairly benign. No other notable lab abnormalities. Chest x-ray concerning for mild volume overload due to HFrEF, very low concern for infectious process. UA with low concern for UTI. IM Haldol x 1 given on evening of 04/22, patient became more somnolent but no hyperactive delirium. ? Continue low-dose Haldol as needed for now. Continue treatment of HFrEF as noted below. Monitor closely. Delirium precautions in place. 2. Acute exacerbation of HFrEF, ischemic cardiomyopathy Patient with reported history of HFrEF. Home medications of Entresto, Lasix, Jardiance, Coreg, aspirin, Plavix. Chest x-ray on 04/22 showed mild volume overload, possibly due to IV fluids given during this admission. Mild hypoxia at rest noted as well. ? Continue IV Lasix 40 mg twice daily for now. Monitor BMP, urine output, volume status, oxygen requirements. Continue home Entresto and Coreg, holding home Jardiance. 3. 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 Chow on 04/20. Mora catheter placed during operation, with plan to leave in place on discharge with outpatient follow-up in a few weeks. ? Urology primary. Management per primary. 4. Debility Patient with some degree of chronic debility, now with acute worsening due to this hospitalization. ? PT/OT/case management following. Planning for SNF on discharge. Chronic medical conditions: ? Type 2 diabetes mellitus: Sliding scale insulin while inpatient. ? CAD, Hypertension, Hyperlipidemia: S/p stenting and CABG x 3. Continue aspirin, Plavix, statin, Coreg, Entresto. IV Lasix as noted above. ? CKD stage III: Creatinine stable at apparent baseline of 1.1-1.3. ? Chronic anemia: Hemoglobin stable at baseline, monitor. ? History of complete heart block: S/p pacemaker placement. DVT prophylaxis: SCDs CODE STATUS: Full code, unverified Expected disposition: SNF, 2 to 3 days Total clinical time spent by myself addressing the patient's medical issues, reviewing all the data, and collaborating with patient's care team: 35 minutes. Charges/Coding Visit Charges Inpatient E&M: 89120 Subs Hosp L2
--- NOTE | 2023-04-23 16:29 | CASEMGMT ---
Addendum entered by Kenyetta Rossi 04/23/23 17:34: Social Work [facility] said they can take pt, but asking about bipapp. drafter chief design asked family, pt is not on Bipapp at home. SW let [facility] know via [facility], will need to see if he needs it at discharge. However, [facility] is now family's first choice and SW has not heard back. SW to follow up on Tuesday. ROSAMARIA Grijalva Addendum entered by Kenyetta Rossi 04/23/23 16:38: Social Work Family was given a list of rehab facilities yesterday by SW via [employer], complete w/quality and resource use data in pt's insurance network and preferred geographic area. ROSAMARIA Grijalva Original Note: Social Work SW spoke w/son Nghia and his in the room. SW let them know that [facility] cannot take pt, and the referral to [facility] is pending. Son now asking about sending a referral to [facility] in [facility] as their first choice, over the [facility]. SW explained pt does not have a qualifying diagnosis, but we can always send the referral to see what they say. This is what the family would prefer. SW sent referral to [facility] via [employer]. SW to follow up on Tuesday. ROSAMARIA Grijalva
[2023-04-23 16:51] LABS: Bedside Glucose 216 mg/dL (74-106)
[2023-04-23] MEDS: Pravastatin 40 MG Tablet PO (20:42)
[2023-04-23 20:53] LABS: Bedside Glucose 98 mg/dL (74-106)
[2023-04-23] MEDS: Albuterol 2.5 MG/3 ML VIAL.NEB. INHALATION (21:08)
--- NOTE | 2023-04-23 22:27 | PCM.HOSP.N ---
Hospitalist Note Patient slipped onto the floor, no history of trauma, appropriate and at his baseline, notes he was attempting to get up and forgot about the bond which pulled him back. Will continue to closely monitor.
--- NOTE | 2023-04-23 22:29 | NURSING ---
Bed alarmed. Pt out of bed sitting crossed leg on the floor. Pt denies any pain. No distress noted. Pt stated he wanted to look out the window. Pt reoriented to place and time. VS take. Assisted with gate belt back to bed. Pt denies any pain with movement and ambulation. Bed alarm applied Bipap reapplied with cont pulse ox. Will cont to monitor. This RN at bedside.
--- NOTE | 2023-04-23 22:41 | NURSING ---
Pt restless, pulling at bipap tubing and bond. Reoriented to place and time. Encouraged pt to sleep. Given warm blanket. Assisted to turn on side. Pt continues to fight wearing the bipap. Will cont to monitor.
--- NOTE | 2023-04-23 23:03 | NURSING ---
Pt cont to be very restless. Pulled off bipap and pulling at bond. Bed alarm maintained.
[2023-04-23] MEDS: Haloperidol Lactate 5 MG/ML Vial IM (23:04)
--- NOTE | 2023-04-23 23:21 | NURSING ---
This RN sitting with pt. He cont to pull at bipap. Attempt again to reorient to place and time. Pt cont to be agitated even after haldol.
[2023-04-24] VITALS (13 sets, daily range): BP systolic 120–128; BP diastolic 69–81; PULSE 56–84; RESP 12–29; TEMP 36.6–37.1; O2SAT 88–99; BMI 27.0
[2023-04-24 07:24] LABS: Bedside Glucose 103 mg/dL (74-106)
[2023-04-24] MEDS: Docusate Sodium 100 MG Capsule 200 MG PO ×2 (08:22→21:30)
[2023-04-24] MEDS: Carvedilol 12.5 MG Tablet PO ×2 (08:22→21:30)
[2023-04-24] MEDS: Furosemide 40 MG/4 ML Vial IV (08:23)
[2023-04-24] MEDS: SACUBITRIL/VALSARTAN 97-103 MG TABLET 1 EACH PO ×2 (08:23→21:31)
[2023-04-24] MEDS: Menthol/Lanolin/Calamine/Znox 113 GM Tube 1 APPLIC TOPICAL ×2 (08:24→21:31)
[2023-04-24] MEDS: Aspirin 81 MG TAB.CHEW PO ×2 (08:27→16:19)
--- NOTE | 2023-04-24 09:23 | PCM.PN.GU ---
Subjective Subjective 87-year-old male status post simple prostatectomy, postop course was complicated with fluid retention mild CHF exacerbation exacerbation, patient is improved dramatically after medical consult and intervention fluids were managed Lasix was given BiPAP. He is now hep-locked good urine output and doing much better, no more confusion clinically looks much better had breakfast this morning. He does qualify for SNF placement for rehab and improving before going home so probably plan to discharge tomorrow once we get a bed. Objective Data Objective Data Vital Signs: Vital Signs Temp Pulse Resp BP Pulse Ox O2 Del Method O2 Flow Rate 97.9 F 72 24 H 120/78 88 Room Air 2 04/24/23 09:04 04/24/23 09:04 04/24/23 09:04 04/24/23 09:04 04/24/23 09:09 04/24/23 09:09 04/24/23 09:04 FiO2 30 04/24/23 04:40 Oxygen Flow Rate (L/min) 2 Oxygen Delivery Method Room Air Weight: 87.9 kg Body Mass Index (BMI) 27.0 Intake & Output: Intake and Output for Last 24 Hours 04/22/23 04/23/23 04/24/23 23:59 23:59 23:59 Intake Total 3767.5 / 3767.5 950 / 950 200 / 200 Output Total 1900 / 1900 5350 / 5350 950 / 950 Balance 1867.5 / 1867.5 -4400 / -4400 -750 / -750 Lab / Micro Data 04/23/23 06:06 04/23/23 06:06 Labs: Laboratory Results - last 24 hr 04/23/23 11:13: POC Glucose 168 H 04/23/23 16:18: POC Glucose 216 H 04/23/23 20:35: POC Glucose 98 04/24/23 07:02: POC Glucose 103 Micro: Microbiology 04/22/23 21:10 Urine Catheter - Catheter Urine Culture - Preliminary Culture exhibits no growth. 04/22/23 21:10 Urine Catheter - Mora Streptococcus pneumoniae Antigen (M - Final
[2023-04-24] MEDS: Insulin Lispro 100 UNIT/ML INSULN.PEN SC ×2 (11:17→16:17)
[2023-04-24 11:39] LABS: Bedside Glucose 179 mg/dL (74-106)
--- NOTE | 2023-04-24 12:06 | PN.HOSP_ITS ---
Reason for Visit Reason for Visit: Diagnoses Encephalopathy, unspecified (04/21/23) Unspecified systolic (congestive) heart failure (04/21/23) Encounter for other preprocedural examination (04/21/23) Subjective Subjective Patient seen at bedside this morning, multiple family members present. Patient appears improved this morning. Sitting up in bed, conversing normally, no acute distress. Patient reports some fatigue but otherwise denies any acute pain or discomfort. No other acute concerns this morning. Objective Data Objective Data Vital Signs: Vital Signs Temp Pulse Resp BP Pulse Ox O2 Del Method O2 Flow Rate 98.2 F 84 16 123/71 H 96 Nasal Cannula 2 04/24/23 11:29 04/24/23 11:29 04/24/23 11:29 04/24/23 11:29 04/24/23 11:33 04/24/23 11:29 04/24/23 11:33 FiO2 30 04/24/23 04:40 Oxygen Flow Rate (L/min) 2 Oxygen Delivery Method Nasal Cannula Weight: 87.9 kg Body Mass Index (BMI) 27.0 Intake & Output: Intake and Output for Last 24 Hours 04/22/23 04/23/23 04/24/23 23:59 23:59 23:59 Intake Total 3767.5 / 3767.5 950 / 950 450 / 450 Output Total 1900 / 1900 5350 / 5350 2850 / 2850 Balance 1867.5 / 1867.5 -4400 / -4400 -2400 / -2400 Lab / Micro Data 04/23/23 06:06 04/23/23 06:06 Labs: Laboratory Results - last 24 hr 04/23/23 16:18: POC Glucose 216 H 04/23/23 20:35: POC Glucose 98 04/24/23 07:02: POC Glucose 103 04/24/23 11:16: POC Glucose 179 H Micro: Microbiology 04/22/23 21:10 Urine Catheter - Catheter Urine Culture - Preliminary Culture exhibits no growth. 04/22/23 21:10 Urine Catheter - Mora Streptococcus pneumoniae Antigen (M - Final Physical Exam Const alert, no apparent distress and average body habitus Constitutional Narrative: Elderly male, appears much improved this morning, sitting comfortably in bed, answering questions appropriately, no acute distress. General Appearance: cooperative and comfortable HEENT normocephalic, head/scalp atraumatic, hearing grossly normal bilaterally, nasal mucous membranes and turbinates normal and moist oral mucous membranes Eyes PERRL, EOMs intact bilaterally and conjunctivae normal Neck full ROM, no lymphadenopathy and supple Lymph Lymphatic: no lymphadenopathy noted Chest inspection of chest normal Resp Resp Narrative: Mild crackles noted bilaterally. No wheezing noted. Otherwise good breath sounds bilaterally. Cardio regular rate, regular rhythm, no murmurs and peripheral pulses 2+ throughout GI normal to inspection, nondistended, normoactive bowel sounds, soft to palpation, non-tender and non-distended Back/Spine normal ROM Extremity normal to inspection and no pedal edema Skin no rashes or lesions noted Neuro moves all extremities and no focal motor deficits Speech: speech normal Psych affect normal Assessment & Plan Assessment/Plan (1) Encephalopathy acute: (2) HFrEF (heart failure with reduced ejection fraction): PLAN: Plan Patient is an 87-year-old male who presented to [facility] on 04/20 for a planned laparoscopic robotic assisted simple prostatectomy. Hospital course complicated by confusion and possible hallucinations on evening of 04/22, medicine consulted for medical management. 1. Acute encephalopathy, improved Suspect patient's confusion is primarily due to hospital delirium and owning. ABG on 04/22 fairly benign. No other notable lab abnormalities. Chest x-ray concerning for mild volume overload due to HFrEF, very low concern for infectious process. UA with low concern for UTI. IM Haldol x 1 given on evening of 04/22, patient became more somnolent but no hyperactive delirium. ? Continue low-dose Haldol as needed for now. Continue treatment of HFrEF as noted below. Monitor closely. Delirium precautions in place. 2. Acute exacerbation of HFrEF, ischemic cardiomyopathy Patient with reported history of HFrEF. Home medications of Entresto, Lasix, Jardiance, Coreg, aspirin, Plavix. Chest x-ray on 04/22 showed mild volume overload, possibly due to IV fluids given during this admission. Mild hypoxia at rest noted as well. ? Hypoxia at rest improving, good urine output with IV Lasix 40 mg twice daily. Will transition to p.o. Lasix 40 mg daily tomorrow (home dose 20 mg daily). Monitor BMP and urine output. Continue home Entresto and Coreg, holding home Jardiance. 3. 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 Chow on 04/20. Mora catheter placed during operation, with plan to leave in place on discharge with outpatient follow-up in a few weeks. ? Urology primary. Management per primary. 4. Debility Patient with some degree of chronic debility, now with acute worsening due to this hospitalization. ? PT/OT/case management following. Planning for SNF on discharge; likely medically stable for discharge tomorrow. Chronic medical conditions: ? Type 2 diabetes mellitus: Sliding scale insulin while inpatient. ? CAD, Hypertension, Hyperlipidemia: S/p stenting and CABG x 3. Continue aspirin, Plavix, statin, Coreg, Entresto. ? CKD stage III: Creatinine stable at apparent baseline of 1.1-1.3. ? Chronic anemia: Hemoglobin stable at baseline, monitor. ? History of complete heart block: S/p pacemaker placement. DVT prophylaxis: Lovenox CODE STATUS: Full code, unverified Expected disposition: SNF, 1 to 2 days Total clinical time spent by myself addressing the patient's medical issues, reviewing all the data, and collaborating with patient's care team: 35 minutes. Charges/Coding Visit Charges Inpatient E&M: 73326 Subs Hosp L2
[2023-04-24 16:35] LABS: Bedside Glucose 190 mg/dL (74-106)
[2023-04-24 21:13] LABS: Bedside Glucose 146 mg/dL (74-106)
[2023-04-24] MEDS: Pravastatin 40 MG Tablet PO (21:31)
--- NOTE | 2023-04-24 21:38 | NURSING ---
Meds given with water. Pt spit meds out into cup. Meds placed in apple sause and given. Pt spit Meds into applesauce cup. Are you trying to kill me? These meds will kill me. Attempt made to reorient pt to place and time. Pt cont to be only oriented to self. Sitting up in a chair. Chair alarm maintained.
--- NOTE | 2023-04-24 22:15 | NURSING ---
Cont pulse ox alarming. Pt had pulled off finger and was noted to be pulling on bond cath. Attempt made to reorient pt to place and time. Pt keeps asking to be pulled up. I need pulled up. I need to sit on the floor. Bed alarm maintained. Pulse ox applied to great toe on right foot with good readings. Will cont to monitor for safety. O2 maintained at 2l n/c. Pulse ox 98%.
[2023-04-25 03:00] VITALS: BP 113/70; PULSE 77; RESP 16; TEMP 36.8; O2SAT 99
[2023-04-25 04:57] LABS: Hematocrit 33.2 % (40-54); Hemoglobin 10.3 g/dL (13.0-16.5); Mean Corpuscular Hgb 29.8 pg (27.0-32.0); Platelet Count 235 K/mm3 (150-450); RBC Distribution Width CV 15.5 % (11.6-14.6); RBC Distribution Width SD 54.3 fl (35.1-43.9); Red Blood Count 3.46 M/mm3 (4.6-6.2); White Blood Count 7.2 K/mm3 (4.4-11.0)
[2023-04-25 05:03] LABS: Anion Gap 5 (5-15); BUN 25 mg/dL (7-18); BUN/Creat Ratio 25.6 RATIO (10-20); Calcium,Total 8.1 mg/dL (8.5-10.1); Chloride 108 mmol/L (98-107); Creatinine, Serum 0.98 mg/dL (0.70-1.30); EST Glomerular Filtration Rate 77 mL/min (>60); Est Glom Filt Rate - Afr Amer 94 mL/min (>60); Estimated Creatinine Clearance 56.56 ml/min; Glucose 122 mg/dL (74-106); Potassium 3.3 mmol/L (3.5-5.1); Sodium Level 145 mmol/L (136-145)
[2023-04-25 06:00] VITALS: BMI 26.6
[2023-04-25 06:45] LABS: Bedside Glucose 127 mg/dL (74-106)
--- NOTE | 2023-04-25 07:32 | PCM.PN.GU ---
Subjective Subjective doing well, no events overnight, pt stable and he can be discharged to [facility] today if bed available. Objective Data Objective Data Vital Signs: Vital Signs Temp Pulse Resp BP Pulse Ox O2 Del Method O2 Flow Rate 98.2 F 77 16 113/70 99 Nasal Cannula 2 04/25/23 03:00 04/25/23 03:00 04/25/23 03:00 04/25/23 03:00 04/25/23 03:00 04/25/23 03:00 04/25/23 03:00 FiO2 99 04/25/23 03:00 Oxygen Flow Rate (L/min) 2 Oxygen Delivery Method Nasal Cannula Weight: 86.7 kg Body Mass Index (BMI) 26.6 Intake & Output: Intake and Output for Last 24 Hours 04/23/23 04/24/23 04/25/23 23:59 23:59 23:59 Intake Total 950 / 950 900 / 1100 325 / 325 Output Total 5350 / 5350 3150 / 3500 800 / 800 Balance -4400 / -4400 -2250 / -2400 -475 / -475 Lab / Micro Data 04/25/23 04:10 04/25/23 04:10 Labs: Laboratory Results - last 24 hr 04/24/23 11:16: POC Glucose 179 H 04/24/23 16:16: POC Glucose 190 H 04/24/23 20:54: POC Glucose 146 H 04/25/23 04:10: WBC 7.2, RBC 3.46 L, Hgb 10.3 L, Hct 33.2 L, MCV 96.0 H, MCH 29.8, MCHC 31.0 L, RDW Std Deviation 54.3 H, RDW Coeff of Leonor 15.5 H, Plt Count 235, MPV 10.0, Sodium 145, Potassium 3.3 L, Chloride 108 H, Carbon Dioxide 32.0, Anion Gap 5, BUN 25 H, Creatinine 0.98, Estim Creat Clear Calc 56.56, Est GFR (MDRD) Af Amer 94, Est GFR (MDRD) Non-Af 77, BUN/Creatinine Ratio 25.6 H, Glucose 122 H, Calcium 8.1 L 04/25/23 06:18: POC Glucose 127 H Micro: Microbiology 04/22/23 21:10 Urine Catheter - Catheter Urine Culture - Preliminary Culture exhibits no growth. 04/22/23 21:10 Urine Catheter - Mora Streptococcus pneumoniae Antigen (M - Final
[2023-04-25 08:31] VITALS: O2SAT 93
--- NOTE | 2023-04-25 09:57 | PHA.DC_ITS ---
Pharmacy [facility] has performed discharge medication reconciliation and counseling for this patient. The patient's discharge medication list was reviewed for discrepancies and discrepancies were resolved. The patient was counseled on the following discharge medications and changes in medications for homegoing were reviewed. The Reason for Use, instructions for use, and potential side effects were reviewed for all new medications. The patient's questions regarding all of their medications were answered. 1. Ciprofloxacin 500 mg BID x 10 days 2. Ibuprofen 600 mg Q6H PRN pain or fever The patient was able to verbally demonstrate an understanding of their discharge medications. The patient demonstrated some understanding but would benefit from further education and reinforcement. The patient was not able to adequately demonstrate understanding. Medications at Discharge Home Medications aspirin 81 mg capsule 81 mg PO BID 04/07/23 carvedilol 12.5 mg tablet 12.5 mg PO BID 04/07/23 clopidogrel 75 mg tablet 75 mg PO DAILY 04/07/23 empagliflozin 10 mg tablet (Jardiance) 10 mg PO DAILY 04/07/23 furosemide 40 mg tablet 20 mg PO DAILY 04/07/23 pravastatin 40 mg tablet 40 mg PO QHS 04/07/23 sacubitril 97 mg-valsartan 103 mg tablet (Entresto) 1 tab PO BID 04/07/23 sitagliptin phosphate 50 mg-metformin 1,000 mg tablet (Janumet) 1 tab PO BID 04/07/23 ciprofloxacin HCl 500 mg tablet (Cipro) 500 mg PO BID #20 tabs 04/20/23 ibuprofen 600 mg tablet 600 mg PO Q6H PRN fever or pain #20 tabs 04/20/23
[2023-04-25] MEDS: Menthol/Lanolin/Calamine/Znox 113 GM Tube 1 APPLIC TOPICAL (10:08)
[2023-04-25] MEDS: Docusate Sodium 100 MG Capsule 200 MG PO (10:09)
[2023-04-25] MEDS: Aspirin 81 MG TAB.CHEW PO (10:10)
[2023-04-25] MEDS: Carvedilol 12.5 MG Tablet PO (10:11)
[2023-04-25] MEDS: SACUBITRIL/VALSARTAN 97-103 MG TABLET 1 EACH PO (10:12)
[2023-04-25] MEDS: Enoxaparin 40 MG/0.4 ML Syringe SC (10:14)
[2023-04-25] MEDS: Furosemide 40 MG Tablet PO (10:15)
[2023-04-25] MEDS: Insulin Lispro 100 UNIT/ML INSULN.PEN SC (11:09)
[2023-04-25 11:17] VITALS: BP 141/81; PULSE 74; RESP 18; TEMP 36.4; O2SAT 99
[2023-04-25 11:39] LABS: Bedside Glucose 184 mg/dL (74-106)
[2023-04-25 14:00] VITALS: BP 150/76; PULSE 74; RESP 18; TEMP 36.4; O2SAT 97
--- NOTE | 2023-04-25 15:00 | CASEMGMT ---
Social Work Patient is accepted to [facility]. Confirmed with patient's son Nghia that this facility remains first choice for the family. Cancelled referral at [facility]. Collaborated with Nghia regarding transport of patient to [place]. Family to transport; prefers this over scheduling a wheelchair van for patient. Provided RN with nurse to nurse report of [phone], faxed orders for confirmed fax at [phone]. Updated nursing. No other services requested or indicated. PLAN: Discharge to [facility]. -TERRENCE Abdul
--- NOTE | 2023-04-27 08:28 | DS.PCM_ITS ---
Providers Date of Admission: 04/21/23 Date of Discharge: 04/25/23 Consultations 04/22/23 18:46 Consult: Hospitalist Routine Consulting Provider: [facility] Reason for Consult: on oxygen, confusion, sundowning. EMERGENT Consult: No MD Notified: Yes Date Notified: 04/22/23 Time Notified: 19:31 Method of Notification: Text Reason For Visit: Laparoscopic Robotic Simple Prostat Diagnosis Discharge Diagnosis (1) Encephalopathy acute: Status: Acute Code(s): G93.40 - Encephalopathy, unspecified (2) HFrEF (heart failure with reduced ejection fraction): Status: Acute Code(s): I50.20 - Unspecified systolic (congestive) heart failure Medications at Discharge Home Medications aspirin 81 mg capsule 81 mg PO BID 04/07/23 carvedilol 12.5 mg tablet 12.5 mg PO BID 04/07/23 clopidogrel 75 mg tablet 75 mg PO DAILY 04/07/23 empagliflozin 10 mg tablet (Jardiance) 10 mg PO DAILY 04/07/23 furosemide 40 mg tablet 20 mg PO DAILY 04/07/23 pravastatin 40 mg tablet 40 mg PO QHS 04/07/23 sacubitril 97 mg-valsartan 103 mg tablet (Entresto) 1 tab PO BID 04/07/23 sitagliptin phosphate 50 mg-metformin 1,000 mg tablet (Janumet) 1 tab PO BID 04/07/23 ciprofloxacin HCl 500 mg tablet (Cipro) 500 mg PO BID #20 tabs 04/20/23 ibuprofen 600 mg tablet 600 mg PO Q6H PRN fever or pain #20 tabs 04/20/23 Hospital Course Summary of Care Provided Hospital Course: Patient underwent a robotic simple prostatectomy for a very large obstructive prostate with urinary retention postop course was complicated with acute encephalopathy confusion he was found to have congestive heart failure with fluid retention medical consult was obtained he underwent diuresis evaluation by medical service he improved dramatically after intervention and then patient was then kept over the weekend stabilized and then discharged to a SNF for improvement and rehab after surgery Physical Exam Const alert and oriented x3 General Appearance: cooperative HEENT normocephalic, head/scalp atraumatic, EAC's normal and TM's normal bilaterally Eyes PERRL and EOMs intact bilaterally Pupil: sluggish Neck no lymphadenopathy, supple and no JVD General: trachea midline Lymph Lymphatic: no lymphadenopathy noted, lymphedema and lymphadenopathy Resp normal respiratory effort, normal air movement and clear to auscultation bilaterally Cardio regular rate, regular rhythm and peripheral pulses 2+ throughout GI soft to palpation, non-tender and non-distended Extremity normal capillary refill and no clubbing, cyanosis or edema General Extremity: no tenderness to palpation of joints or extremities Skin no rashes or lesions noted General Skin Exam: turgor normal Lesions: no lesions Rashes: no rashes Neuro CN's II-XII intact bilaterally Speech: speech normal Motor Exam: strength 5/5 throughout; Negative for general weakness Psych thought process normal, cooperative and affect normal Appearance: appropriate Weight / BMI Weight Weight: 86.7 kg Body Mass Index (BMI) 26.6 ABG / Lab / Microbiology Data 04/25/23 04:10 04/25/23 04:10 Microbiology: Microbiology 04/22/23 21:10 Urine Catheter - Catheter Urine Culture - Final Culture exhibits no growth. 04/22/23 21:10 Urine Catheter - Mora Streptococcus pneumoniae Antigen (M - Final D/C Instructions Discharge Diet: No restrictions Cleanse incision/area with: Soap & Water Catheter: Mora to leg bag and Mora to large bag Drain: [place] Please Follow Up With: Virgil Chow MD When: Call for an appointment in 2 weeks remove catheter Meaningful Use Info Meaningful Use Diagnoses (Choose all that apply): None applicable Discharge Plan Admission Admit Date/Time: 04/21/23 18:09 Primary Reason for Your Visit: Simple prostatectomy Attending Provider: Virgil Chow Primary Care Provider: BRYN REED Consulting Providers: Kirill Juarez; Dominga Delarosa; Glen Torres; Angelo Lopez; Татьяна Peterson; Nella De Leon NP; Rain Richardson Mark NP; Connor Horton; Sanjuanita Bryant; Sanjuanita Saldivar; Ed Wilson Discharge Orders/Prescriptions Prescriptions: New ciprofloxacin HCl [Cipro] 500 mg tablet 500 mg PO BID Qty: 20 0RF ibuprofen 600 mg tablet 600 mg PO Q6H PRN (Reason: fever or pain) Qty: 20 0RF Continued Jardiance 10 mg tablet 10 mg PO DAILY Patient Comments: TAKE 1 TABLET BY MOUTH IN THE MORNING carvedilol 12.5 mg tablet 12.5 mg PO BID Patient Comments: TAKE 1 TABLET BY MOUTH TWICE DAILY furosemide 40 mg tablet 20 mg PO DAILY Janumet 50-1,000 mg tablet 1 tab PO BID pravastatin 40 mg tablet 40 mg PO QHS Entresto 97-103 mg tablet 1 tab PO BID Held aspirin 81 mg capsule 81 mg PO BID Hold Instructions: Resume on 05/04/23. clopidogrel 75 mg tablet 75 mg PO DAILY Hold Instructions: Resume on 05/04/23. Discontinued tamsulosin 0.4 mg capsule 0.4 mg PO QHS Referrals / Follow Up: Virgil Chow MD [Med Staff - Active Staff] - Disposition Disposition (needs filled in before D/C Order can be placed): Senior Living Facility
== END 2023-04-25 14:11 | disposition skilled nursing facility (03) | DRG 717 ==
LOC: SDC 17:48 → MS3 17:48
PROVIDERS: Anesthesiology; Family Medicine; Hospitalist; Admitting Provider Urology; Referring Provider Urology; Visit Provider Urology
PROC: 0VT04ZZ Resection of Prostate, Percutaneous Endoscopic Approach (ICD-10-PCS; CPT 55867; principal; 2023-04-20 11:20)
DX: N40.1 Benign prostatic hyperplasia with lower urinary tract symptoms (principal); I50.23 Acute on chronic systolic (congestive) heart failure; G93.49 Other encephalopathy; N13.8 Other obstructive and reflux uropathy; I13.0 Hypertensive heart and chronic kidney disease with heart failure and stage 1 through stage 4 chronic kidney disease, or unspecified chronic kidney disease; D63.1 Anemia in chronic kidney disease; E11.22 Type 2 diabetes mellitus with diabetic chronic kidney disease; N18.30 Chronic kidney disease, stage 3 unspecified; I48.0 Paroxysmal atrial fibrillation; I25.10 Atherosclerotic heart disease of native coronary artery without angina pectoris; E78.00 Pure hypercholesterolemia, unspecified; I25.5 Ischemic cardiomyopathy; R33.8 Other retention of urine; R09.02 Hypoxemia; R53.81 Other malaise; Z95.1 Presence of aortocoronary bypass graft; Z95.810 Presence of automatic (implantable) cardiac defibrillator; Z79.02 Long term (current) use of antithrombotics/antiplatelets; Z79.82 Long term (current) use of aspirin; Z79.84 Long term (current) use of oral hypoglycemic drugs; Z79.899 Other long term (current) drug therapy; Z80.42 Family history of malignant neoplasm of prostate
CPT/HCPCS: 36415; 36600; 71046; 80048; 80053; 81001; 82140; 82803; 82962; 83036; 83605; 83735; 83880; 84145; 85025; 85027; 87086; 87449; 88307; 88309; 94002; 94003; 94640; 94762; 97110; 97116; 97162; 97166; 97530; 97535; J7030; J7120; J0744; J1940; J2405